=== PATIENT | male | born 1985 | race Two or more races ===

== ENCOUNTER 2019-05-03 17:32 | Emergency (ER) | payer OTHER ==
[~2019-05-03] VITALS: Ht 177.8 cm; Wt 84.8 kg
== END 2019-05-03 21:15 | disposition home or self-care (01) ==
LOC: ER 17:32
DX: S46.211A Strain of muscle, fascia and tendon of other parts of biceps, right arm, initial encounter (principal); X50.0XXA Overexertion from strenuous movement or load, initial encounter; Y93.B9 Activity, other involving muscle strengthening exercises; Y92.89 Other specified places as the place of occurrence of the external cause; Y99.8 Other external cause status